=== PATIENT | male | born 1980 | race Caucasian/White ===

== ENCOUNTER → 2017-07-28 | Outpatient (CLI) | payer OTHER ==
--- NOTE | 2017-07-28 17:20 | Diagnostic Imaging Report ---
PROCEDURE:TESTICULAR ULTRASOUND with Dopplers COMPARISON:None. INDICATIONS:EPIDIDYMITIS TECHNIQUE: Fernandez-scale and color doppler images of the testicles and scrotal contents were obtained. Duplex imaging with spectral waveform analysis was performed of the testicular arteries and veins. FINDINGS: RIGHT SCROTUM: Testicle: 3.7 x 2.0 x 2.8 cm. Normal echotexture. Epididymal head: 1.3 x 1.7 x 0.9 cm. Hydrocele: None Varicocele: None Normal arterial and venous waveforms. LEFT SCROTUM: Testicle: 3.9 x 1.9 x 2.3 cm. Normal echotexture. Epididymal head: 1.6 x 1.4 x 1.5 cm. 1.2 x 1.2 x 1.4 cm left epididymal head cyst. Hydrocele: Small left Varicocele: None Normal arterial and venous waveforms. CONCLUSION: Unremarkable testicular ultrasound. Dictated by: Jamie Fuller M.D. on 07/28/2017 at 17:19 Electronically approved by: Jamie Fuller M.D. on 07/28/2017 at 17:19
--- NOTE | 2017-07-28 17:22 | Diagnostic Imaging Report ---
PROCEDURE:TESTICULAR DOPPLER ULTRASOUND COMPARISON:None. INDICATIONS:EPIDIDYMITIS TECHNIQUE: Fernandez-scale and color doppler images of the testicles and scrotal contents were obtained. Duplex imaging with spectral waveform analysis was performed of the testicular arteries and veins. FINDINGS: Please see testicular ultrasound of the same date for combined dictation. CONCLUSION: Please see testicular ultrasound of the same date for combined dictation. Dictated by: Jamie Fuller M.D. on 07/28/2017 at 17:22 Electronically approved by: Jamie Fuller M.D. on 07/28/2017 at 17:22
== END ==
LOC: US 14:01
PROVIDERS: ATTEND Urology
DX: N45.1 Epididymitis (principal)
CPT/HCPCS: 76870; 93976